=== PATIENT | male | born 1940 | race Two or more races ===

== ENCOUNTER → 2017-06-19 | Outpatient (CLI) | payer OTHER ==
[~2017-06-19] MED LIST: cloNIDine HCL 0.1 MG TAB ONE; cloNIDine HCL 0.1 MG TAB PO ONE
[2017-06-19 11:10] VITALS: BP 110/84
[2017-06-19 12:10] VITALS: BP 153/83
[2017-06-19 16:13] LABS: Urine Bilirubin Negative (Negative); Urine Blood 1+ /uL (Negative); Urine Color Yellow (Yellow); Urine Glucose Normal (Normal); Urine Ketone Negative (Negative); Urine Nitrite Negative (Negative); Urine Urobilinogen Normal (Negative)
[2017-06-19 16:19] LABS: Basophils # (auto) 0.1 uL; Basophils % (auto) 0.8 % (0.0-2.0); Eosinophils # (auto) 0 uL; Eosinophils % (auto) 0.5 % (0.0-7.0); Hematocrit 47.7 % (41.0-53.0); Hemoglobin 16.2 g/dL (13.5-17.5); Lymphocytes # (auto) 1.1 uL; Lymphocytes % (auto) 15.6 % (10.0-50.0); Mean Corpuscular Hgb Conc. 33.9 g/dL (32.0-36.0); Mean Corpuscular Volume 82.6 fL (80.0-100.0); Mean Platelet Volume 9.9 fL (6.9-10.8); Monocytes # (auto) 0.4 uL; Monocytes % (auto) 5.5 % (0.0-12.0); Neutrophils # (auto) 5.2 uL; Neutrophils % (auto) 77.6 % (37.0-80.0); Nucleated Red Blood Cells % 0.2 %; Platelet Count (auto) 219 10^3/uL (140-450); Red Cell Distribution Width 14.4 % (11.8-14.3); White Blood Cell 6.8 10^3/uL (4.4-10.8)
[2017-06-19 16:25] LABS: Albumin 3.9 g/dL (3.4-5.0); BUN/Creatinine Ratio 11.6; Bilirubin, Direct 0.3 mg/dL (0-0.2); Bilirubin, Total 1.2 mg/dL (0.2-1.0); Calcium 8.9 mg/dL (8.5-10.1); Total Protein 7.7 g/dL (6.4-8.2)
== END | disposition home or self-care (01) ==
LOC: CHF HDHVI 11:10
PROVIDERS: ATTEND Internal Medicine Cardiovascular Disease
DX: E78.00 Pure hypercholesterolemia, unspecified (principal); D64.9 Anemia, unspecified; I10 Essential (primary) hypertension; E55.9 Vitamin D deficiency, unspecified; E11.9 Type 2 diabetes mellitus without complications; K74.1 Hepatic sclerosis; E03.9 Hypothyroidism, unspecified; N39.0 Urinary tract infection, site not specified; R97.20 Elevated prostate specific antigen [PSA]; R53.81 Other malaise
CPT/HCPCS: 36415; 80048; 80061; 80076; 81003; 82306; 83036; 84153; 84403; 84443; 85025; G0463

== ENCOUNTER → 2017-06-26 | Outpatient (CLI) | payer OTHER ==
[2017-06-26 12:03] LABS: Urine Bilirubin Negative (Negative); Urine Blood TRACE /uL (Negative); Urine Color Yellow (Yellow); Urine Glucose Normal (Normal); Urine Ketone Negative (Negative); Urine Nitrite Negative (Negative); Urine RBC 4 /hpf (0 - 3); Urine Squamous Epithelial Cell FEW /hpf (<5)
== END | disposition home or self-care (01) ==
LOC: LAB 09:48
PROVIDERS: ATTEND Internal Medicine Cardiovascular Disease
DX: N39.0 Urinary tract infection, site not specified (principal)
CPT/HCPCS: 81001; 87088

== ENCOUNTER → 2017-10-24 | Outpatient (CLI) | payer OTHER ==
[~2017-10-24] VITALS: Ht 182.9 cm; Wt 116.6 kg
== END | disposition home or self-care (01) ==
LOC: Rad HDHVI 13:21
PROVIDERS: ATTEND Internal Medicine Cardiovascular Disease
DX: I35.1 Nonrheumatic aortic (valve) insufficiency (principal); I63.9 Cerebral infarction, unspecified; E11.9 Type 2 diabetes mellitus without complications; I10 Essential (primary) hypertension; E78.00 Pure hypercholesterolemia, unspecified; E03.9 Hypothyroidism, unspecified
CPT/HCPCS: 78452; 93017; 96374; A9500

== ENCOUNTER → 2019-03-31 | Outpatient (CLI) | payer OTHER ==
[~2019-03-31] MED LIST changes: +IOHEXOL 350 MG/ML 100ML IJ ONE; -cloNIDine HCL 0.1 MG TAB ONE; -cloNIDine HCL 0.1 MG TAB PO ONE
--- NOTE | 2019-03-31 09:45 | NUR ---
IN TO CLINIC FOR SCHEDULED CT SCAN.
--- NOTE | 2019-03-31 10:00 | NUR ---
REVIEWED PROCESS OF CT SCAN AND OBTAINING LABS. IV insertion IV access obtained, via clean sterile technique by inserting 22 gauge catheter at after attempt(s). IV secured properly. No trauma to site. Patient tolerated procedure well.
[2019-03-31 11:02] LABS: Calcium 8.8 mg/dL (8.5-10.1); Potassium 3.9 mmol/L (3.5-5.1)
[2019-03-31 11:04] LABS: BUN/Creatinine Ratio 11.2
--- NOTE | 2019-03-31 11:35 | NUR ---
STAT CREATININE RETURNED. TO CT SCAN WITH WILLIE IN ATTENDANCE.
[2019-03-31 11:50] VITALS: BP 166/85
--- NOTE | 2019-03-31 11:50 | NUR ---
TOLERATED CT SCAN WELL. WITHOUT DISTRESS. IV TO RIGHT AC DCD AND SITE BENIGN POST REMOVAL. DISCHARGED TO SELF CARE IN NO DISTRESS OR DISCOMFORT.
[2019-03-31 11:55] VITALS: BP 166/91
[2019-03-31 16:00] LABS: Urine Blood TRACE /uL (Negative); Urine Specific Gravity 1.019 (1.001-1.035)
[2019-03-31 16:13] LABS: Albumin 3.7 g/dL (3.4-5.0); Bilirubin, Direct 0.2 mg/dL (0-0.2)
[2019-03-31 16:16] LABS: Bilirubin, Total 0.8 mg/dL (0.2-1.0); Total Protein 7.6 g/dL (6.4-8.2)
[2019-03-31 16:17] LABS: Basophils # (auto) 0 uL; Basophils % (auto) 0.5 % (0.0-2.0); Eosinophils # (auto) 0.2 uL; Eosinophils % (auto) 2.4 % (0.0-7.0); Hematocrit 47.3 % (41.0-53.0); Hemoglobin 15.9 g/dL (13.5-17.5); Lymphocytes # (auto) 1.5 uL; Lymphocytes % (auto) 22.1 % (10.0-50.0); Mean Corpuscular Hgb Conc. 33.6 g/dL (32.0-36.0); Mean Corpuscular Volume 83.4 fL (80.0-100.0); Monocytes # (auto) 0.4 uL; Monocytes % (auto) 6.2 % (0.0-12.0); Neutrophils # (auto) 4.6 uL; Neutrophils % (auto) 68.8 % (37.0-80.0); Nucleated Red Blood Cells % 0.1 %; Platelet Count (auto) 212 10^3/uL (140-450); Red Blood Cells 5.68 10^6/uL (4.5-5.90); Red Cell Distribution Width 14.8 % (11.8-14.3); White Blood Cell 6.6 10^3/uL (4.4-10.8)
== END | disposition home or self-care (01) ==
LOC: Rad HDHVI 09:25
PROVIDERS: ATTEND Internal Medicine Cardiovascular Disease
DX: J34.2 Deviated nasal septum (principal); R91.1 Solitary pulmonary nodule; K21.9 Gastro-esophageal reflux disease without esophagitis; E03.9 Hypothyroidism, unspecified; K90.9 Intestinal malabsorption, unspecified; C61 Malignant neoplasm of prostate; E29.1 Testicular hypofunction; N39.0 Urinary tract infection, site not specified; D51.9 Vitamin B12 deficiency anemia, unspecified; Z79.899 Other long term (current) drug therapy; R63.4 Abnormal weight loss
CPT/HCPCS: 36415; 71260; 80048; 80061; 80076; 81003; 82306; 83036; 84153; 84403; 84443; 85025; G0463; Q9967

== ENCOUNTER → 2019-04-03 | Outpatient (CLI) | payer OTHER | END | disposition home or self-care (01) | LOC: Rad HDHVI 10:59 | PROVIDERS: ATTEND Internal Medicine Cardiovascular Disease | DX: R06.02 Shortness of breath (principal) | CPT/HCPCS: 71046 ==

== ENCOUNTER → 2020-01-20 | Outpatient (CLI) | payer OTHER ==
[2020-01-20 13:57] LABS: Albumin 3.8 g/dL (3.4-5.0); BUN/Creatinine Ratio 10.3; Bilirubin, Total 0.8 mg/dL (0.2-1.0); Calcium 9.3 mg/dL (8.5-10.1); Total Protein 7.6 g/dL (6.4-8.2)
== END | disposition home or self-care (01) ==
LOC: LAB 12:41
PROVIDERS: ATTEND Internal Medicine Cardiovascular Disease
DX: I10 Essential (primary) hypertension (principal); D64.9 Anemia, unspecified; E78.00 Pure hypercholesterolemia, unspecified; D74.8 Other methemoglobinemias; Z79.899 Other long term (current) drug therapy
CPT/HCPCS: 36415; 80053; 80061; 82607; 83036

== ENCOUNTER → 2020-01-26 | Outpatient (CLI) | payer OTHER | END | disposition home or self-care (01) | LOC: Rad HDHVI 09:52 | PROVIDERS: ATTEND Internal Medicine | DX: I08.1 Rheumatic disorders of both mitral and tricuspid valves (principal); I27.20 Pulmonary hypertension, unspecified; I11.9 Hypertensive heart disease without heart failure; I63.9 Cerebral infarction, unspecified; J20.9 Acute bronchitis, unspecified | CPT/HCPCS: 93306 ==

== ENCOUNTER → 2020-04-21 | Outpatient (CLI) | payer OTHER ==
[2020-04-21 12:20] LABS: Potassium 3.9 mmol/L (3.5-5.1)
[2020-04-21 12:30] LABS: Albumin 3.9 g/dL (3.4-5.0); BUN/Creatinine Ratio 11.6; Bilirubin, Total 1.2 mg/dL (0.2-1.0); Calcium 8.9 mg/dL (8.5-10.1); Total Protein 7.2 g/dL (6.4-8.2)
== END | disposition home or self-care (01) ==
LOC: LAB 09:27
PROVIDERS: ATTEND Internal Medicine
DX: I10 Essential (primary) hypertension (principal); E78.00 Pure hypercholesterolemia, unspecified
CPT/HCPCS: 36415; 80053; 80061

== ENCOUNTER → 2020-06-09 | Outpatient (CLI) | payer OTHER ==
[2020-06-09 11:57] LABS: Basophils # (auto) 0.1 10 ^3/uL (0-0.2); Basophils % (auto) 1.6 % (0.0-2.0); Eosinophils # (auto) 0.2 10 ^3/uL (0-0.8); Eosinophils % (auto) 2.7 % (0.0-7.0); Hemoglobin 15.8 g/dL (13.5-17.5); Lymphocytes # (auto) 1.6 10 ^3/uL (0.4-5.4); Lymphocytes % (auto) 20.9 % (10.0-50.0); Mean Corpuscular Hemoglobin 27.7 pg (28.0-32.0); Mean Corpuscular Hgb Conc. 33.6 g/dL (32.0-36.0); Mean Corpuscular Volume 82.3 fL (80.0-100.0); Monocytes # (auto) 0.4 10 ^3/uL (0-1.3); Monocytes % (auto) 5.8 % (0.0-12.0); Neutrophils # (auto) 5.2 10 ^3/uL (1.6-8.6); Nucleated Red Blood Cells % 0.1 %; Platelet Count (auto) 244 10^3/uL (140-450); Red Cell Distribution Width 14.2 % (11.8-14.3); White Blood Cell 7.5 10^3/uL (4.4-10.8)
[2020-06-09 12:02] LABS: Urine Blood Negative /uL (Negative); Urine Specific Gravity 1.004 (1.001-1.035)
[2020-06-09 12:05] LABS: Albumin 3.4 g/dL (3.4-5.0); Calcium 8.7 mg/dL (8.5-10.1)
[2020-06-09 12:10] LABS: Bilirubin, Total 0.8 mg/dL (0.2-1.0); Total Protein 7.5 g/dL (6.4-8.2)
[2020-06-09 12:15] LABS: Free T4 (Free Thyroxine) 1.01 ng/dL (0.89-1.76); Prostate Specific Antigen 1.71 ng/mL (0.0-4.0)
== END | disposition home or self-care (01) ==
LOC: LAB 08:00
PROVIDERS: ATTEND Internal Medicine
DX: C61 Malignant neoplasm of prostate (principal); D51.3 Other dietary vitamin B12 deficiency anemia; I10 Essential (primary) hypertension; E11.9 Type 2 diabetes mellitus without complications; E55.9 Vitamin D deficiency, unspecified; D64.9 Anemia, unspecified; R00.2 Palpitations; R53.1 Weakness; R30.0 Dysuria
CPT/HCPCS: 36415; 80053; 80061; 81003; 82306; 82607; 83036; 84153; 84403; 84439; 84443; 85025